=== PATIENT | female | born 1945 | race Caucasian/White ===

== ENCOUNTER 2025-04-24 14:58 | Emergency (ER) | payer MEDICARE, BC, SELFPAY ==
[2025-04-24 15:00] VITALS: BP 155/72; PULSE 69; RESP 20; TEMP 36.7; O2SAT 98; BMI 31.6
--- NOTE | 2025-04-24 15:05 | ED_ITS ---
<Statement entered by Milana Walsh DO - 04/25/25 21:57> I was consulted by the FILI, and we discussed the complexity of problems being addressed. I approve the treatment and management plan for this patient's care in the emergency department, thus performing a substantial portion of the medical decision making. Milana Walsh DO Discharge Plan Disposition Patient Disposition: Home, Self-Care Condition: Good Prescriptions Prescriptions: New cefdinir 300 mg capsule 300 mg PO BID 7 Days Qty: 14 0RF Referrals Follow up/Referrals: Rudolph Uribe MD [Primary Care Provider, Medical] - See instructions Activity Restrictions/Add. Instructions Additional Instructions/Restrictions: You were evaluated on an emergency basis. It is very important that you follow- up with your primary care provider and any specialist who we discussed within the next 2 days in order to better assess your health more comprehensively. For example, incidental findings on imaging or laboratory results that were performed today may be discovered, which do not require immediate medical care, but may impact your health in the future. If your symptoms worsen or persist, please return to the emergency department immediately for reassessment. Take all medications as prescribed. In queue for allowing me to participate in your health care, and I hope you feel better soon. Clinical Impressions Clinical Impression: Urinary tract infection Instructions Patient Instructions: DI for Urinary Tract Infection (UTI) Print Language Print Language: Colombian Discharge ED Provider: Milana Walsh General Adult HPI General Chief complaint: Urogenital-Female Stated complaint: Will discuss with Dr Chairez Seen by Provider: 04/24/25 15:05 History of Present Illness HPI narrative: 79-year-old female presents emergency department with complaints of vaginal discomfort for the past month. She states that she originally thought she had a urinary tract infection however she followed up with her primary care provider approximate 1 month ago where her urinalysis was negative. She states today she got a mirror and was looking in her vaginal area and it appeared that something was coming out of me . She reports taking a shower and trying to push what ever was coming out back in. She denies other symptoms at this time. Related Data Previous Rx's ?Medication ?Instructions ?Recorded cefdinir 300 mg capsule 300 mg PO BID 7 days #14 cap s 04/24/25 Allergies Allergy/AdvReac Type Severity Reaction Status Date / Time No Known Allergies Allergy Verified 04/24/25 15:17 PFSH PFSH Disclaimer: The information contained in this section may have been updated after the patient was seen, as this information can be updated by other users. Social History Smoking Status: Never smoker alcohol intake: never current occupational status: previously employed Travel in the last 8 weeks?: None ROS Obtained: Yes other Genitourinary Female Genitourinary: Reports prolapse symptoms Physical Exam Narrative Physical exam: General: Awake, aware, in no acute distress HEENT: Normocephalic, no evidence of trauma CV: RRR, no murmurs, rubs, or gallops Pulm: CTA bilaterally with no rhonchi, rales, wheezes ABD: Nontender, no swelling, guarding, or rebound tenderness Psych, appropriate mood and affect General General appearance: alert Respiratory Respiratory exam: Present normal lung sounds bilaterally Cardiovascular Cardiovascular exam: Present regular rate External exam: Present normal external exam and other (RN present as gold reclaimer) Neurological Exam Neurological exam: Present alert Medical Decision Making Medical Records Screening: Per USPSTF and CDC recommendations, given the prevalence of disease in our region, it is our hospital?s policy to screen for HIV and viral Hepatitis for all patients aged 18 and over and those with ongoing risk factors. Donnie Inquiry Pt receiving controlled substance: No Vital Signs: 04/24/25 15:00 Temperature 98.0 F Temperature Source Temporal Artery Scan Pulse Rate [Left] 69 Respiratory Rate 20 Blood Pressure [Right Arm] 155/72 H Blood Pressure Mean [Right Arm] 99 Blood Pressure Source [Right Arm] Automatic Cuff Blood Pressure Position [Right Arm] Sitting 02 Sat by Pulse Oximetry 98 Oxygen Delivery Method Room Air Lab Data Lab Results 04/24/25 15:15: Urine Color Yellow, Urine Appearance Cloudy, Urine pH 6.0, Ur Specific Jackson 1.010, Urine Protein Negative, Urine Glucose (UA) Negative, Urine Ketones Negative, Urine Blood 1+ A, Urine Nitrate Positive A, Urine Bilirubin Negative, Urine Urobilinogen 0.2, Ur Leukocyte Esterase 3+ A, Urine RBC 20-50, Urine WBC Tntc, Ur Squamous Epith Cells 10-20, Urine Bacteria 4+ Orders (Tests/Meds): ORDERS Category Date Time Status Urinalysis and Microscopic Stat Lab 04/24/25 15:15 Completed Urine Culture Stat Micro 04/24/25 15:15 Received Medical Decision Narrative: Initial impression of presenting illness: 79-year-old female presents the emergency department with complaints of vaginal discomfort for the past month. She states that she originally thought she had a urinary tract infection however when she followed up with her primary care provider her urinalysis was negative for UTI. Patient states today she was looking at the area with a mirror and was concerned that something was coming out of her vaginal area. Patient reports that she took shower and attempted to push back what ever was coming out. Differential diagnosis includes but is not limited to: Prolapsed uterus, prolapsed bladder, mass, abscess Patient arrives hemodynamically stable, afebrile, without respiratory distress with vital signs interpreted by myself. Initial physical exam unremarkable. Vaginal exam was completed with RN as a gold reclaimer. No anatomical abnormalities were noted. Abdomen soft nontender with normal active bowel sounds. Initial diagnostic plan: Urinalysis Results from initial plan were reviewed and interpreted by myself, pertinent positives include: Urinalysis positive for nitrates as well as 20-50 red blood cells per high-power field as well as too numerous to count white blood cells per high-power field. Also 4+ bacteria. Patient was made aware of the results and the findings, upon reevaluation patient has remained stable throughout stay, symptoms remained stable. Upon reevaluation patient is resting comfortably in bed with no signs of acute distress. Disposition: Reviewed findings today's workup with patient and informed that she does have a urinary tract infection and that we will treat with Omnicef. Advised that she follow-up with her primary care provider for further evaluation of her UTI. Also she states that she has got in touch with a assurance manager insurance and has an appointment scheduled for later this month for follow-up of possible organ prolapse. I instructed her to return to the emergency department any new or worsening symptoms. Patient is agreeable to plan of care. Patient made aware of findings and had a detailed discussion with symptomatic care and return precautions, patient voiced understanding. Critical Care Critical Care Time Critical Care Time: No
[2025-04-24 15:24] LABS: Microscopic, Urine URINE MICROSCOPIC (MICROSCOPIC)
[2025-04-24 15:29] LABS: Bilirubin,Urine Negative (Negative); Color,Urine YELLOW (Yellow); Glucose,Urine (UA) Negative (Negative); Ketones,Urine Negative (Negative); Leukocyte Esterase,Urine 3+ (Negative); PH,Urine 6.0 (5.0-8.5); Protein,Urine Negative (Negative); Specific Gravity, Urine 1.010 (1.005-1.030); Urobilinogen,Urine 0.2 EU/dl (0.2)
--- OUTSIDE RECORDS SUMMARY | 2025-04-24 16:00 | XMS_ITS | Encounter Summary ---
[facility] Address [address] [place] [address] Care Team Providers Care Pharmacy Tech Name Role Phone Chung Toth APRN Primary Care Provi fabienne Encounter Details Date Type Department Care Team (Late st Contact Info) Description 03/27/2025 Telephone [facility] [address] [place] [id number] Madhavi Sen MD [address] [place], [place] [id number] Social History Tobacco Use Types Packs/Day Years Used Date Smoking Tobacco: Never Smokeless Tobacco: Never Alcohol Use Standard Drinks/Week Comments No 0 (1 standard drink = 0.6 oz pur e alcohol) AUDIT-C Answer Date Recorded Q1: How often do you have a drink containing alcohol? Never 05/20/2023 Q2: How many drinks containi ng alcohol do you have on a typical day when you are drinking? Patient does not drink Q3: How often do you have si x or more drinks on one occasion? Never 05/20/2023 Abuse Screen Answer Date Recorded Feels Unsafe at Home or Work/School no 05/20/2023 Feels Threatened by Someone no 05/08 Does Anyone Try to Keep You From Having Contact with Others or Doing Things Outside Your Home? no 05/20/2023 Physical Signs of Abuse Present no 05/20/2023 Housing Stability Answer Date Recorded Current Living Arrangements home 05/08 Potentially Unsafe Housing Conditions Not on joe e 05/20/2023 Disabilities Answer Date Recorded Difficulty Concentrating, Remembering or Making Decisions no 05/20/2023 Difficulty Managing Errands Independently yes 05/20/2023 Education Answer Date Recorded Help with school or training? Not on file Preferred Language Namibian 05/06/2023 Comments No Sex and Gender Information Value Date Recorded Sex Assigned at Not on file Legal Sex Female 12:00 PM EDT Gender Identity Not on file Sexual Orientation Not on file documented as of this encounter Miscellaneous Notes * Telephone Encounter - Christine Melton RN - 03/27/2025 3:03 PM EDT Pt has been contacted in regards to 's labs/Echo. Meds sent to [facility] in [place]. * Telephone Encounter - Yasmine Funes RegSched Rep - 03/27/2025 2:44 PM EDT PT CALLED LVM STATING SHE WAS RETURNING YOUR CALL. documented in this encounter Plan of Treatment Upcoming Encounters Date Type Department Care Team (Late st Contact Info) Description 08/22/2025 12:30 PM EST Office Visit [facility] [address] [place] [id number] Jaqueline Nance APRN [address] [place] [id number] documented as of this encounter Visit Diagnoses Not on filedocumented in this encounter Care Teams Pharmacy Tech Relationship Specialty Start Date End Date Chung Toth APRN [address] [place] [id number] PCP - General Nurse Practitioner 03/09/23 documented as of this encounter
--- OUTSIDE RECORDS SUMMARY | 2025-04-24 16:00 | XMS_ITS | Clinical Summary ---
Author Organization [facility] Address [address] [place] [address] Care Team Providers Care Assembly Line Inspector Name Role Phone ArchiefrancoisChung APRN Primary Care Provi fabienne Allergies Active Allergy Reactions Criticality Noted Date Comments Clarithromycin GI Intolerance Low 04/28/2017 Cefaclor Rash Low 04/28/2017 Erythromycin GI Intolerance Low 09/10/2022 Naproxen GI Intolerance Low 04/28/2017 Penicillins Hives Low 04/28/2017 Sulfa Antibiotics Other (See Comments) Low 04/28/20 17 Unsure Other reaction(s): Other (See Comments) Unsure Medications lisinopril (PRINIVIL,ZESTR IL) 40 MG tablet Take 1 tablet by mouth Daily. 1 06/22/2017 Active metoprolol succinate XL (TOPROL-XL) 50 MG 24 hr tablet Take 1 tablet by mouth Daily. 1 08/11/2017 Active sertraline (ZOLOFT) 50 MG tablet Take 1 tablet by mouth Daily. 1 11/15/2017 Active famotidine (PEPCID) 20 MG tablet Take 1 tablet by mouth 2 (Two) Times a Day. 07/07/2021 Active rosuvastatin (CRESTOR) 20 MG tablet Take 1 tablet by mouth Daily. 08/31/2021 Active albuterol sulfate HFA 108 (90 Base) MCG/ACT inhaler Inhale 2 puffs Every 4 (Four) Hours As Needed. 04/26/2022 Active esomeprazole (nexIUM) 40 MG capsule Take 1 capsule by mouth Every Morning Before Breakfast. 05/13/2022 Active promethazine (PHENERGAN) 12.5 MG tablet Take 1 tablet by mouth Daily. 05/17/2022 Active clonazePAM (KlonoPIN) 0.5 MG tablet Take 1 tablet by mouth 2 (Two) Times a Day. 05/18/2022 Active ondansetron (ZOFRAN) 4 MG tablet Take 1 tablet by mouth Every 8 (Eight) Hours As Needed. 09/20/2022 Active aspirin 81 MG EC tablet Take 1 tablet by mouth Daily. 06/21/2023 Active acetaminophen (TYLENOL) 325 MG tablet Take 2 tablets by mouth Every 6 (Six) Hours As Needed for Mild Pain. 05/28/2023 Active levothyroxine (SYNTHROID, LEVOTHROID) 125 MCG tablet 02/13/2025 Active Cholecalciferol (VITAMIN D-3 PO) Take by mouth. Active Magnesium Oxide (MAGNESIUM EXTRA STRENGTH PO) Take by mouth. Active Active Problems Problem Noted Date Diagnosed Date Nonrheumatic aortic valve insufficiency 02/22/20 Assessment & Plan (02/21/2025 4:07 PM EDT): Noted that patient had murmur on assessment Echo check 02/19/2025 showing: EF 65%, -Aortic valve sclerosis, mild calcification, mild regurgitation without significant stenosis. -mild aortic valve regurgitation We discussed today a new diagnosis of mild aortic valve insufficiency and that the patient should follow her symptoms. If she has increased shortness of air, edema, dizziness weakness or syncope then she should return for further assessment sooner. Otherwise I told her that we could recheck this valve every 3 to 5 years or as needed with any increased symptoms. Heart murmur 02/14/2025 Assessment & Plan (02/14/2025 6:55 PM EDT): New finding on the assessment by her family physician and present on assessment at today's visit Cardiology note from [facility] reports her last echocardiogram in 2020 with no significant valvular disease Plan: Check an echo Follow-up after study to review the findings Coronary artery disease invo lving twenty-nine palms coronary artery of twenty-nine palms heart without angina pectoris 02/14/2025 Assessment & Plan (02/21/2025 4:01 PM EDT): Known history of nonflow-limiting coronary artery disease seen on heart cath in 2019. Last nuclear stress test 07/17/2024 at [facility] that is low risk. Symptoms are stable Plan: Continue medical management including aspirin, statin, metoprolol and lisinopril She is advised heart healthy diet She is advised low sodium diet She is advised exercise and activity She is advised if her symptoms increase or worsen then she is to return Assessment & Plan (02/14/2025 6:54 PM EDT): She has a known history of nonflow-limiting coronary artery disease seen on heart cath 07/20/2019. I have requested this heart cath to review. She was most recently seen by [facility] cardiology Her last nuclear stress test was completed 07/17/2024 at [facility] and this was a normal Paulina nuclear stress test with no Paulina induced ischemia demonstrated and normal ejection fraction. Her complaints of epigastric to low chest discomfort does seem to be related to indigestion and acid reflux as it is occurring when she misses her Pepcid. Pain does seem atypical for cardiac She also has a complaint of left shoulder pain. This pain is relieved by Tylenol or occasionally and Advil. This pain seems atypical for cardiac. Plan: She is on medical management and we plan to continue the following: Aspirin Statin Metoprolol Lisinopril Continue to follow her symptoms closely and she is advised any increased or worsening to let this office know or to present to the emergency room for further evaluation and she verbalized understanding Status post total hip replacement, right 023 Degenerative arthritis of hip 03/09/2023 Acute postoperative pain 10/06/2017 Obesity 10/05/2017 S/P total knee arthroplasty, left 10/04/2017 Hypothyroid 10/04/2017 HTN (hypertension) 10/04/2017 HLD (hyperlipidemia) 10/04/2017 Prediabetes 10/04/2017 Primary osteoarthritis of left knee 08/29/2017 Overview (08/29/2017): Added automatically from request for surgery [id number] Encounters Date Type Department Care Team Description 03/27/2025 Telephone [facility] [address] [place], [place] [address] Madhavi Sen MD 02/21/2025 8:45 AM EDT Office Visit [facility] [address] [place] [phone] Prisca Martinez APRN Nonrheumatic aortic valve insufficiency (Primary Dx); Coronary artery disease involving twenty-nine palms coronary artery of twenty-nine palms heart without angina pectoris 02/21/2025 Travel 02/19/2025 12:30 PM EDT Ancillary Procedure [facility] [place] [id number] Heart murmur 02/19/2025 Travel 02/14/2025 9:30 AM EDT Office Visit [facility] [place] [place] [address] Prisca Martinez APRN Heart murmur (Primary Dx); Coronary artery disease involving twenty-nine palms coronary artery of twenty-nine palms heart without angina pectoris 02/14/2025 Patient rounding ([facility] only) [facility] [address] [place] [phone] Prisca Martinez APRN 02/14/2025 Travel from Last 3 Months Family History Medical History Relation Name Comments Heart attack Father Hypertension Father Heart attack Mother Hypertension Mother Relation Name Status Comments Father Mother Social History Tobacco Use Types Packs/Day Years Used Date Smoking Tobacco: Never Smokeless Tobacco: Never Tobacco Cessation:Counseling Given: Not Answered Alcohol Use Standard Drinks/Week Comments No 0 [...] or training? Not on file Preferred Language Cameroonian 05/06/2023 Comments No Sex and Gender Information Value Date Recorded Sex Assigned at Not on file Legal Sex Female 12:00 PM EDT Gender Identity Not on file Sexual Orientation Not on file Last Filed Vital Signs Vital Sign Reading Time Taken Comments Blood Pressure 118/64 02/21/2025 8:29 AM EDT Pulse 68 02/21/2025 8:29 AM EDT Temperature 36.3 C (97.3 F) 06/13/2023 1:34 PM EST Respiratory Rate 18 05/21/2023 12:00 PM EDT Oxygen Saturation 98% 02/21/2025 8:29 AM EDT Inhaled Oxygen Concentration - - Weight 74.5 kg (164 lb 4.8 oz) 02/21/2025 8:29 A M EDT Height 149.9 cm (4' 11 ) 02/21/2025 8:29 AM EDT Body Mass Index 33.18 02/21/2025 8:29 AM EDT Plan of Treatment Upcoming Encounters Date Type Department Care Team (Late st Contact Info) Description 08/22/2025 12:30 PM EST Office Visit [facility] [address] [place] [address] Jaqueline Nance, FIRST AID DIRECTOR [address] [place] [address] [place] [address] Health Maintenance Due Date Last Done Comments LIPID PANEL 1945 COLOGUARD 1989 COLON CANCER SCREENING 5 YEA R SIGMOIDOSCOPY [address] CT COLONOGRAPHY 1989 FECAL OCCULT BLOOD TEST 1989 FIT Testing (1 year) 1989 RSV Vaccine - Adults (1 - 1- dose 75+ series) 12/17/2019 COLONOSCOPY 01/14/2020 01/13/2010 COLORECTAL CANCER SCREENING 01/14/2020 DXA SCAN 11/17/2023 11/16/2021 COVID-19 Vaccine (4 - 2024-2 6 season) 2025 08/31/2021, 12/19/2020, 11/19/2020 INFLUENZA VACCINE 05/08/2025 04/29/2020, 04/02/2019 ANNUAL WELLNESS VISIT 09/19/2025 09/19/2024, 023 TDAP/TD VACCINES (2 - Td or Tdap) 03/01/2033 023, 05/20/2011 ZOSTER VACCINE Completed 10/08/2019, 07/03/2019 Pneumococcal Vaccine 50+ Completed 022, 07/15/2017, 10/08/2015, Additional history exists MAMMOGRAM Discontinued 04/25/2023, 04/08, 11/16/2021, Additional history exists Medical Devices Implanted Type Area [employer] Device Identifier Shelf Expiration Date Model / Serial / Lot Cmt Bone Simplex/P Full Dose 10/Pk - [id number] Implanted:Qty: 1 on 10/04/2017 by Sammy Villanueva MD at [facility] Implant RACHID KARUNA 03/07/2020 [id number] / / [id number] Comp Fem Attune Cmt Ps Sz4 Lt - [id number] Implanted:Qty: 1 on 10/04/2017 by Sammy Villanueva MD at [facility] Implant Left: Knee DEPUY 05/07/2027 [id number] / / [id number] Comp Pat Attune Cmt Medl Marija 35mm - [id number] Implanted:Qty: 1 on 10/04/2017 by Sammy Villanueva MD at [facility] Implant Left: Knee DEPUY 08/07/2022 [id number] / / [id number] Base Tib Attune Cmt Rp Sz4 - [id number] Implanted:Qty: 1 on 10/04/2017 by Sammy Villanueva MD at [facility] Implant Left: Knee DEPUY 04/07/2027 [id number] / / [id number] Insrt Tib Attune Ps Rp Sz4 6mm - [id number] Implanted:Qty: 1 on 10/04/2017 by Sammy Villanueva MD at [facility] Implant Knee DEPUY 06/07/2022 [id number] / / [id number] Totl Kn Attune Depuy [id number] - [id number] Implanted:Qty: 1 on 10/04/2017 by Sammy Villanueva MD at [facility] Implant Left: Knee DEPUY CAPKNEETOTA LDEP5 / / Liner Acet R3 Xlpe 0d 29s21gk - [id number] Implanted:Qty: 1 on 05/20/2023 by Sammy Villanueva MD at [facility] Implant Right: Hip BAUTISTA AND NEPHEW [id number] 11/15/2032 [id number] / / [id number] Scrw Sph Hd Reflection 6.5x25mm - [id number] Implanted:Qty: 1 on 05/20/2023 by Sammy Villanueva MD at [facility] Implant Right: Hip [employer]PHEW [id number] 12/10/2032 [id number] / / [id number] Stem Fem/Hip Polarstem W/Colr Std Sz2 - [id number] Implanted:Qty: 1 on 05/20/2023 by Sammy Villanueva MD at [facility] Implant Right: Hip [employer]W [id number] 09/09/2029 [id number] / / [id number] Hd Fem/Hip Bioloxdelta R3 /14 Sm 32mm Pls0 - [id number] Implanted:Qty: 1 on 05/20/2023 by Sammy Villanueva MD at [facility] Implant Right: Hip [employer]PHEW [id number] 2030 [id number] / / [id number] Totl Hip Turner Bautista Nephew - [id number] Implanted:Qty: 1 on 05/20/2023 by Sammy Villanueva MD at [facility] Implant Right: Hip [employer]A [employer] NEPHEW CAPHIPTOTAL SN2 / / Dev Contrl Tiss Stratafix Spiral Mncryl Ud 3/0 Pls 60cm - [id number] Implanted:Qty: 1 on 05/20/2023 by Sammy Villanueva MD at [facility] Implant Right: Hip [employer] DIV OF J AND J [id number] 02/04/2025 [id number] / / [id number] Dev Contrl Tiss Stratafix Symm Pds Plus Anna Ct-1 45cm - [id number] Implanted:Qty: 1 on 05/20/2023 by Sammy Villanueva MD at [facility] Implant Right: Hip [employer] DIV OF Giancarlo AND Giancarlo [id number] 11/05/2024 [id number] / / [id number] Shll Acet R3 3h Std 48mm - [id number] Implanted:Qty: 1 on 05/20/2023 by Sammy Villanueva MD at [facility] Implant Right: Hip [employer]PHEW [id number] 11/22/2032 [id number] / / [id number] Procedures Procedure Name Priority Date/Time Associated Diagnosis Comments ECHO COMPLETE W/ DOPPLER AND COLOR FLOW Routine 02/19/2025 1:19 PM EDT Heart murmur ECG 12-LEAD Routine 02/14/2025 7:01 PM EDT Coronary artery disease involving twenty-nine palms coronary artery of twenty-nine palms heart without angina pectoris SCANNED - LABS 02/13/2025 from Last 3 Months Results * ECHO COMPLETE W/ DOPPLER AND COLOR FLOW (02/19/2025 1:19 PM EDT) [facility] Signature EF(MOD-bp) 65.1 % LVIDd 4.0 cm LVIDs 2.6 cm IVSd 1.07 cm LVPWd 0.89 cm FS 33.2 % IVS/LVPW 1.20 cm ESV(cubed) 18.4 ml LV Sys Vol (BSA corrected) 18.2 cm2 EDV(cubed) 61.6 ml LV Lyn Vol (BSA corrected) 53.1 cm2 LV mass(C)d 121.0 grams LVOT area 3.1 cm2 LVOT diam 2.00 cm EDV(MOD-sp2) 83.9 ml EDV(MOD-sp4) 89.8 ml ESV(MOD-sp2) 30.2 ml ESV(MOD-sp4) 30.7 ml SV(MOD-sp2) 53.7 ml SV(MOD-sp4) 59.1 ml SVi(MOD-SP2) 31.8 ml/m2 SVi(MOD-SP4) 35.0 ml/m2 SVi (LVOT) 70.4 ml/m2 EF(MOD-sp2) 64.0 % EF(MOD-sp4) 65.8 % MV E max steve 86.0 cm/sec MV A max steve 105.0 cm/sec MV dec time 0.26 sec MV E/A 0.82 IVRT 103.0 ms Med Peak E' Steve 6.5 cm/sec Lat Peak E' Steve 7.5 cm/sec TR max steve 264.3 cm/sec Avg E/e' ratio 12.29 SV(LVOT) 119.1 ml RVIDd 2.47 cm RV Base 3.2 cm RV Mid 3.0 cm RV Length 5.9 cm TAPSE (>1.6) 2.01 cm RV S' 15.4 cm/sec LA dimension (2D) 2.9 cm LV V1 max 162.0 cm/sec LV V1 max PG 10.5 mmHg LV V1 mean PG 5.0 mmHg LV V1 VTI 37.9 cm Ao pk steve 186.0 cm/sec Ao max PG 13.8 mmHg Ao mean PG 7.0 mmHg Ao V2 VTI 37.7 cm SLIM(I,D) 3.2 cm2 Dimensionless Index 1.01 (DI) AI P1/2t 702.2 msec MV max PG 4.8 mmHg MV mean PG 2.00 mmHg MV V2 VTI 36.0 cm MV P1/2t 80.0 msec MVA(P1/2t) 2.7 cm2 MVA(VTI) 3.3 cm2 MV dec slope 307.0 cm/sec2 TR max PG 28.0 mmHg RVSP(TR) 31.0 mmHg RAP systole 3.0 mmHg PA V2 max 128.0 cm/sec Ao root diam 2.6 cm Sinus 2.6 cm Anatomical Region Laterality Modality Ultrasound Narrative 02/19/2025 6:10 PM EDT Left ventricular systolic function is normal. Calculated left ventricular EF = 65.1% Left ventricular diastolic function was indeterminate. Estimated right ventricular systolic pressure from tricuspid regurgitation is normal (<35 mmHg). Mild aortic valve regurgitation is present. Left Ventricle Left ventricular systolic function is normal. Calculated left ventricular EF = 65.1% Normal left ventricular cavity size noted. Left ventricular wall thickness is consistent with hypertrophy. Sigmoid-shaped ventricular septum is present. All left ventricular wall segments contract normally. Left ventricular diastolic function was indeterminate. Right Ventricle Normal right ventricular cavity size, wall thickness, systolic function and septal motion noted. Left Atrium Left atrial volume is borderline increased. Right Atrium Normal right atrial cavity size noted. Right atrial volume is 23 ml. Mitral Valve Mild mitral annular calcification is present. There is mild calcification of the mitral valve anterior and posterior leaflet(s). Mild mitral valve regurgitation is present. No significant mitral valve stenosis is present. Tricuspid Valve The tricuspid valve is structurally normal with no significant stenosis present. Mild tricuspid valve regurgitation is present. Estimated right ventricular systolic pressure from tricuspid regurgitation is normal (<35 mmHg). Aortic Valve The aortic valve is abnormal in structure. The aortic valve exhibits sclerosis. There is mild calcification of the aortic valve. Mild aortic valve regurgitation is present. No hemodynamically significant aortic valve stenosis is present. Pulmonic Valve The pulmonic valve is not well visualized. The pulmonic valve is grossly normal in structure. There is trace pulmonic valve regurgitation present. There is no pulmonic valve stenosis present. Pericardium There is a trivial pericardial effusion. The effusion is fluid filled. There is no evidence of cardiac tamponade. Greater Vessels No dilation of the aortic root is present. No dilation of the sinuses of Valsalva is present. No dilation of the proximal aorta is present. The ascending aorta not well visualized. The aortic arch not well visualized. The descending aorta not well visualized. The inferior vena cava is normally sized. Normal IVC inspiratory collapse of greater than 50% noted. The pulmonary artery not well visualized. Study Quality The study is technically difficult for diagnosis. Wall Scoring Score Index: 1.00 The left ventricular wall motion is normal. us Prisca Martinez APRN CV ECHO ORDERABLES Nette richards Result * ECG 12-LEAD (02/14/2025 7:01 PM EDT) Narrative ECG - 02/14/2025 7:01 PM EDT Prisca Martinez APRN 02/14/2025 7:02 PM ECG 12 Lead Date/Time: 02/14/2025 7:01 PM Performed by: Prisca Martinez APRN Authorized by: Prisca Martinez APRN Comparison: compared with previous ECG from 05/06/2023 Similar to previous ECG Comparison to previous ECG: Sinus rhythm heart rate 62 Rhythm: sinus rhythm Rate: normal BPM: 63 Conduction: conduction normal ST Segments: ST segments normal T Waves: T waves normal Clinical impression: non-specific ECG Comments: Possible inferior myocardial infarction, probably old Procedure Note Prisca Martinez APRN - 02/14/2025 9:30 AM EDT Images from the original note were not included. [facility] Provider Note Date: 02/14/2025 Name: Tracy Romano : 1945 PCP: Chung Toth APRN Chief Complaint Patient presents with [facility] NECK SIZE: 13in Subjective History of Present Illness Tracy Romano is a 79 y.o. female who presents today for new patientreferral from Dr. Uribe for new murmur on assessment and intermittentchest pains. She reports that she is was at her family physician's officeyesterday and was told that she had a murmur. She does not believe shehas ever been told this in the past. She reports that she has seen [facility] cardiology in the past. Shereports that her last visit was in 2023 and she had a stress test inDecember 2023. She wishes to move her cardiology care to this office aswe are closer to home for her. Patient reports that she has been told that she has a hiatal hernial andshe feels mid epigastric discomfort and this radiates up into her lowerchest. She describes this as acid reflux and indigestion. She reportsthis mostly happens when she misses her Pepcid dose from time to time.She reports she is supposed to take the Pepcid twice a day but sometimesshe does miss 1 of those doses. This is when she feels the epigastricdiscomfort. Patient also reports left shoulder pain. She reports today that the chestpain does not radiate from the epigastric to the left shoulder. Shereports these as 2 separate complaints. She reports that the shoulderpain responds to Tylenol and at times it requires an Advil but the painsubsides after pain medication. She has good range of motion in theshoulder. She does not recall a specific injury to the left shoulder. She reports that she will occasionally feel a few fast beats of her heart.This is only happened a few times when she was laying down and restingjust before bedtime. Cardiac history and testin. Nonobstructive CAD [facility] 07/2019 - Nuclear stress test 07/26/2024 at [facility] - Normal Paulina nuclear stress test - No Paulina induced ischemia demonstrated - Normal ejection fraction 2. Murmur 02/13/2025 Last echo 2020: - EF 60% - No Significant valve disease 3. Hypertension 4. Hyperlipidemia Reports Denies Chest Pain [x] [] Shortness of Air [] [x] Palpitations [x] [] Edema [] [x] Dizziness [] [x] Syncope [] [x] Allergies Allergen Reactions Biaxin [Clarithromycin] GI Intolerance Ceclor [Cefaclor] Rash Erythromycin GI Intolerance Naproxen GI Intolerance Penicillins Hives Sulfa Antibiotics Other (See Comments) Unsure Other reaction(s): Other (See Comments) Unsure Current Outpatient Medications: acetaminophen (TYLENOL) 325 MG tablet, Take 2 tablets by mouth Every 6(Six) Hours As Needed for Mild Pain., Disp: , Rfl: albuterol sulfate HFA 108 (90 Base) MCG/ACT inhaler, Inhale 2 puffsEvery 4 (Four) Hours As Needed., Disp: , Rfl: aspirin 81 MG EC tablet, Take 1 tablet by mouth Daily., Disp: , Rfl: clonazePAM (KlonoPIN) 0.5 MG tablet, Take 1 tablet by mouth 2 (Two)Times a Day., Disp: , Rfl: esomeprazole (nexIUM) 40 MG capsule, Take 1 capsule by mouth EveryMorning Before Breakfast., Disp: , Rfl: famotidine (PEPCID) 20 MG tablet, Take 1 tablet by mouth 2 (Two) Times aDay., Disp: , Rfl: levothyroxine (SYNTHROID, LEVOTHROID) 125 MCG tablet, , Disp: , Rfl: lisinopril (PRINIVIL,ZESTRIL) 40 MG tablet, Take 1 tablet by mouthDaily., Disp: , Rfl: 1 metoprolol succinate XL (TOPROL-XL) 50 MG 24 hr tablet, Take 1 tablet bymouth Daily., Disp: , Rfl: 1 ondansetron (ZOFRAN) 4 MG tablet, Take 1 tablet by mouth Every 8 (Eight)Hours As Needed., Disp: , Rfl: promethazine (PHENERGAN) 12.5 MG tablet, Take 1 tablet by mouth Daily.,Disp: , Rfl: rosuvastatin (CRESTOR) 20 MG tablet, Take 1 tablet by mouth Daily.,Disp: , Rfl: sertraline (ZOLOFT) 50 MG tablet, Take 1 tablet by mouth Daily., Disp: ,Rfl: 1 Past Medical History: Diagnosis Date Arthritis Cancer basal cell left leg removed from Fecal urgency AT 4 AM THEN AGAIN AT 8 GERD (gastroesophageal reflux disease) Hard to intubate HAD BRUISED THROAT FROM LAST INTUBATION WITH TUBAL Hiatal hernia History of kidney stones Hives when stressed Hypertension Hypothyroid Low back pain Neuropathy, lumbosacral (radicular) PONV (postoperative nausea and vomiting) WILL WANTS MEDS TO HELP Scoliosis Spinal stenosis, lumbar Spondylolisthesis, lumbar region Wears glasses Past Surgical History: Procedure Laterality Date CATARACT EXTRACTION BILAT WITH LENS CHOLECYSTECTOMY COLONOSCOPY ENDOSCOPY KIDNEY STONE SURGERY PARATHYROIDECTOMY SKIN CANCER EXCISION left leg basal removed TONSILLECTOMY TOTAL HIP ARTHROPLASTY Right 05/20/2023 Procedure: MODIFIED ANTERIOR TOTAL HIP ARTHROPLASTY - RIGHT; Surgeon:Sammy Villanueva MD; Location: [facility]; Service: Orthopedics;Laterality: Right; TOTAL KNEE ARTHROPLASTY Left 10/04/2017 Procedure: TOTAL KNEE ARTHROPLASTY LEFT; Surgeon: Sammy Villanueva MD;Location: [facility]; Service: TUBAL ABDOMINAL LIGATION WISDOM TOOTH EXTRACTION All 4 Family History Problem Relation Age of Onset Hypertension Mother Heart attack Mother Hypertension Father Heart attack Father Social History Socioeconomic History Marital status: Tobacco Use Smoking status: Never Smokeless tobacco: Never Vaping Use Vaping status: Never Used Substance and Sexual Activity Alcohol use: No Drug use: No Sexual activity: Defer Objective Vital Signs: BP 126/70 (BP Location: Left arm, Patient Position: Sitting, Cuff Size:Adult) Pulse 63 Ht 149.9 cm (59 ) Wt 73.9 kg (163 lb) BMI32.92 kg/m Estimated body mass index is 32.92 kg/m as calculated from thefollowing: Height as of this encounter: 149.9 cm (59 ). Weight as of this encounter: 73.9 kg (163 lb). Physical Exam Constitutional: Appearance: Normal appearance. She is well-developed. HENT: Head: Normocephalic and atraumatic. Nose: Nose normal. Mouth/Throat: Mouth: Mucous membranes are moist. Eyes: General: No scleral icterus. Pupils: Pupils are equal, round, and reactive to light. Neck: Vascular: No carotid bruit. Cardiovascular: Rate and Rhythm: Normal rate and regular rhythm. Pulses: Normal pulses. Radial pulses are 2+ on the right side and 2+ on the left side. Dorsalis pedis pulses are 2+ on the right side and 2+ on the leftside. Posterior tibial pulses are 2+ on the right side and 2+ on the leftside. Heart sounds: Murmur heard. Pulmonary: Effort: Pulmonary effort is normal. Breath sounds: Normal breath sounds. No wheezing or rhonchi. Abdominal: General: Bowel sounds are normal. Musculoskeletal: Right lower leg: No edema. Left lower leg: No edema. Skin: General: Skin is warm and dry. Capillary Refill: Capillary refill takes less than 2 seconds. Coloration: Skin is not cyanotic. Nails: There is no clubbing. Neurological: Mental Status: She is alert and oriented to person, place, and time. Motor: No weakness. Gait: Gait normal. Psychiatric: Mood and Affect: Mood normal. Behavior: Behavior normal. Behavior is cooperative. Thought Content: Thought content normal. Cognition and Memory: Memory normal. Cardiology studies reviewed: Nuclear stress test 07/26/2024 and officenote from [place] [facility] 07/18/2024, Labs reviewed: 02/13/2025 CMP,lipids, TSH, free T4, hemoglobin A1c, CBC, [facility] 02/13/2025 and I have requested LHC from 2019 but thisstudy is not available at the time of this dictation. ECG 12 Lead Date/Time: 02/14/2025 7:01 PM Performed by: Prisca Martinez APRN Authorized by: Prisca Martinez APRN Comparison: compared withprevious ECG from 05/06/2023 Similar to previous ECG Comparison to previous ECG: Sinus rhythm heart rate 62 Rhythm: sinus rhythm Rate: normal BPM: 63 Conduction: conduction normal ST Segments: ST segments normal T Waves: T waves normal Clinical impression: non-specific ECG Comments: Possible inferior myocardial infarction, probably old Assessment and Plan Diagnoses and all orders for this visit: 1. Heart murmur (Primary) Assessment & Plan: New finding on the assessment by her family physician and present onassessment at today's visit Cardiology note from [place] reports her last echocardiogram in 2020with no significant valvular disease Plan: Check an echo Follow-up after study to review the findings Orders: - Adult Transthoracic Echo Complete W/ Cont if Necessary Per Protocol;Future 2. Coronary artery disease involving twenty-nine palms coronary artery of nativeheart without angina pectoris Assessment & Plan: She has a known history of nonflow-limiting coronary artery disease seenon heart cath 07/20/2019. I have requested this heart cath to review. She was most recently seen by [place]'s of cardiology Her last nuclear stress test was completed 07/17/2024 at [facility] and this was a normal Paulina nuclear stress test with no Lexiinduced ischemia demonstrated and normal ejection fraction. Her complaints of epigastric to low chest discomfort does seem to berelated to indigestion and acid reflux as it is occurring when she missesher Pepcid. Pain does seem atypical for cardiac She also has a complaint of left shoulder pain. This pain is relieved byTylenol or occasionally and Advil. This pain seems atypical forcardiac. Plan: She is on medical management and we plan to continue the following: Aspirin Statin Metoprolol Lisinopril Continue to follow her symptoms closely and she is advised any increasedor worsening to let this office know or to present to the emergency roomfor further evaluation and she verbalized understanding Orders: - ECG 12 Lead Recommendations: ER if symptoms increase, Report if any new/changingsymptoms immediately, and Limitations of stress testing for definitivediagnosis reviewed Follow Up Return in about 2 weeks (around 02/28/2025) for ECHO follow up. Patient was given instructions and counseling regarding her condition orfor health maintenance advice. Please see specific information pulled intothe AVS if appropriate. us Prisca Martinez FIRST AID DIRECTOR ECG ORDERABLES Final R esult BH ECG * LABS SCANNED (02/13/2025) us Prisca Kothari Juan FIRST AID DIRECTOR LAB BLOOD ORDERABLES Fi nal Result from Last 3 Months Insurance MEDICARE A & B [facility] Advance Directives * CPR (Attempt to Resuscitate) (Latest Code Status on File) Date Activated Date Inactivated Comments 05/20/2023 3:55 PM 05/21/2023 5:02 PM Question Answer Comments Code Status (Patient has no pulse and is not breathing): CPR (Attempt to Resuscitate) Medical Interventions (Patie nt has pulse or is breathing): Full Support * Full Code Date Activated Date Inactivated Comments 10/04/2017 2:08 PM 10/06/2017 5:10 PM Question Answer Comments Level Of Support Discussed With: Patient Care Teams Assembly Line Inspector Relationship Specialty Start Date End Date Chung Toth APRN [address] [place] [id number] PCP - General Nurse Practitioner 03/09/23
[2025-04-24 16:24] LABS: RBC,Urine 20-50 #/hpf (0-3); WBC,Urine TNTC #/hpf (0-3)
[2025-04-24 16:25] LABS: Bacteria,Urine 4+ /lpf
[2025-04-24 16:40] VITALS: BP 135/74; PULSE 62; RESP 16; TEMP 36.7; O2SAT 96
--- NOTE | 2025-04-26 09:40 | PC.NURSE ---
Urine culture results reviewed by Dr. Flood. No new orders received at this time.
== END 2025-04-24 16:49 | disposition home or self-care (01) ==
PROVIDERS: Emergency Provider Student in an Organized Health Care Education/Training Program; PCP Emergency Medicine
DX: N39.0 Urinary tract infection, site not specified (principal)
CPT/HCPCS: 81001; 87086; 87088; 87186; 99283

== ENCOUNTER 2025-06-17 12:45 | Day surgery (SDC) | payer MEDICARE, BC, SELFPAY ==
[2025-06-12 08:43] VITALS: BMI 31.6
--- NOTE | 2025-06-14 15:53 | EXP.HP ---
History of Present Illness *Admission Date: 06/17/25 *History of present illness: Mrs. Romano is an 79-year-old female who is here for diagnostic EGD. She does have a history of GERD and is on Nexium and famotidine. The patient has had dysphagia for more than 2 years but over the last 18 months she has had worsening symptoms with food getting stuck or hung in the mid esophagus with some severe pain with swallowing/odynophagia. She has had 2 change diet to softer foods and soups. She has lost 40 pounds unintentionally. She reports no heartburn or reflux while on Nexium and famotidine. The examination is deemed medically necessary for diagnostic EGD. The patient has been seen, interviewed and examined prior to the procedure by both myself and the anesthesia provider. [facility] Disclaimer: The information contained in this section may have been updated after the patient was seen, as this information can be updated by other users. Medical History Irregular heartbeat History of gastroesophageal reflux (GERD) Hemorrhoid Hypothyroid Hypertension Hyperlipidemia Skin cancer Pelvic organ prolapse quantification stage 2 cystocele Urinary tract infection Surgical History History of cholecystectomy History of parathyroid surgery History of knee replacement History of right hip replacement Family History Other Cancer Heart disease Social History (Updated 06/17/25 @ 13:40 by Bharat Moreno CRNA) Smoking Status: Never smoker alcohol intake: never substance use type: denies use current occupational status: retired Travel in the last 8 weeks?: Inside the [place] Have you lived/traveled outside US in past 30 days?: No Contact w/someone who lives/traveled outside US past 30 days?: No Exposure to someone with infectious disease in past 14 days?: No Do you have a fever (greater than 100.4 F or 38 C)?: No Have you tested positive for COVID-19?: No Exposed to someone with COVID-19 in past 14 days?: No Do you have a sore throat?: No Do you have a cough?: No Do you have any weakness?: No Are you experiencing any nausea/vomitting?: No Do you have any diarrhea?: No Are you experiencing any unusual bleeding?: No Do you have any muscle aches/pain?: No Do you have any abdominal pain?: No Are you experiencing loss of taste or smell?: No Other Medical History Have you received the Pneumonia Vaccine: Yes Review of Systems Review of Systems Review of systems (narrative): Negative *Cardiovascular Comments: Negative *Gastrointestinal Comments: Negative *Genitourinary Comments: Negative *Musculoskeletal Comments: Negative *Neurologic Comments: Negative Meds Home Medications and Allergies Home Medications ?Medication ?Instructions ?Recorded ?Confirmed ?Type cholecalciferol (vitamin D3) 125 125 mcg PO DAILY 05/06/25 06/17/25 History mcg (5,000 unit) capsule clonazepam 0.5 mg tablet (Klonopin) 0.5 mg PO DAILY 05/06/25 06/17/25 History estradiol 0.01% (0.1 mg/gram) 0.5 g vaginal DAILY #42.5 grams 05/06/25 06/17/25 Rx vaginal cream famotidine 20 mg tablet (Pepcid) 20 mg PO DAILY 05/06/25 06/17/25 History lisinopril 40 mg tablet 40 mg PO DAILY 05/06/25 06/17/25 History magnesium citrate 100 mg capsule 200 mg PO DAILY 05/06/25 06/17/25 History metoprolol succinate 50 mg 50 mg PO DAILY 05/06/25 06/17/25 History tablet,extended release 24 hr rosuvastatin 20 mg tablet 20 mg PO DAILY 05/06/25 06/17/25 History sertraline 50 mg tablet 50 mg PO DAILY 05/06/25 06/17/25 History levothyroxine 112 mcg tablet 112 mcg PO DAILY 06/06/25 06/17/25 History omeprazole magnesium 20 mg 20 mg PO BID 06/06/25 06/17/25 History capsule,delayed release (Acid Shake Loader (omeprazole)) aspirin 81 mg capsule 81 mg PO DAILY 06/12/25 06/17/25 History New Prescriptions to Start Prescriptions: Allergies Allergy/AdvReac Type Severity Reaction Status Date / Time Penicillins Allergy Mild Rash Verified 06/17/25 13:24 sulfa drugs Allergy Mild Rash Uncoded 06/06/25 14:29 Exam Data for Last 24 hours I & O for Last 24 hours: Intake & Output 06/11/25 06/12/25 06/13/25 06/14/25 23:59 23:59 23:59 23:59 Weight 162 lb *Routine HEENT Exam Head: Present normocephalic Eye: Present EOMI and PERRL ENT: Present mucous membranes moist *Routine Neck Exam Neck: Present supple *Routine Respiratory Exam Respiratory: Present CTA bilaterally *Routine Cardiovascular Exam Cardiovascular: Present RRR *Routine Abdominal Exam Abdominal: Present soft and normoactive bowel sounds; Absent tenderness *Routine Rectal Exam Rectal:: deferred *Routine Genitalia Exam Genitalia:: deferred *Routine Extremities Exam Extremities: Absent cyanosis, clubbing or edema *Routine Skin Exam Skin: Present warm; Absent rash *Routine Neurological Exam Neurological: Present alert and oriented X3 Assessment and Plan *Assessment and plan (1) Painful swallowing: Status: Acute Category: Medical Code(s): R13.10 - Dysphagia, unspecified (2) Dysphagia: Status: Acute Category: Medical Code(s): R13.10 - Dysphagia, unspecified (3) Weight loss: Status: Acute Category: Medical Code(s): R63.4 - Abnormal weight loss (4) Regurgitation of food: Status: Acute Category: Medical Code(s): R11.10 - Vomiting, unspecified (5) History of gastroesophageal reflux (GERD): Status: Acute Category: Medical Code(s): Z87.19 - Personal history of other diseases of the digestive system Plan A/P: 1. Dysphagia/odynophagia (painful swallowing) with weight loss and regurgitation of food is the preprocedural diagnosis. The patient does have a history of GERD well-controlled on Nexium and famotidine. The patient will be anesthetized/sedated using MAC sedation. The patient has been seen and examined. Cardiac and lung assessment prior to the examination is stable. Proceed with planned diagnostic EGD.
--- NOTE | 2025-06-17 07:07 | HMH.PROCNOTE ---
[facility] Procedure Note Date: 06/17/25 Time: 14:36 Procedure Note:: Upper Endoscopy Procedure Report: Esophagogastroduodenoscopy with cold biopsies and TTS balloon dilation Endoscopost: Allan Agustin II, MD Referring Physician: Rudolph Uribe MD Date of Procedure: June 17, 2025 Equipment: Olympus GIF-1100 standard upper endoscope Sedation: MAC sedation Indications: Mrs. Romano is an 79-year-old female who is here for diagnostic EGD. She does have a history of GERD and is on Nexium and famotidine. The patient has had dysphagia for more than 2 years but over the last 18 months she has had worsening symptoms with food getting stuck or hung in the mid esophagus with some severe pain with swallowing/odynophagia. She has had to change diet to softer foods and soups. The patient does report a lot of belching and mid epigastric and retrosternal discomfort. The patient reports early satiety and abdominal tightness/bloating. She reports regular bowel function. She has lost 40 pounds unintentionally. She reports no heartburn or reflux while on Nexium and famotidine. The examination is deemed medically necessary for diagnostic EGD. Procedure: Prior to the procedure, a history and physical exam was performed, and patient's medications and allergies were reviewed. The risks, benefits and alternatives of the sedation and procedure were discussed with the patient. All questions were answered and informed consent was obtained. The patient was brought to the procedure room. Patient identification and proposed procedure were verified by the physician and the nurse. The patient was placed in a left lateral decubitus position and the scope was passed under direct vision. Throughout the procedure, the patient's blood pressure, pulse, and oxygen saturations were monitored continuously. The upper GI endoscopy was accomplished without difficulty. The patient tolerated the procedure well. Findings: The scope was passed directly into the upper esophagus and advanced to the third portion of the duodenum. The post bulbar duodenum, ampulla and duodenal bulb were normal with normal mucosa and conniventes. 2 cold biopsies were taken from the second portion of the duodenum for the disaccharidase assay. The scope was withdrawn through a normal duodenal bulb and pylorus into the stomach. There was moderate linear reactive gastropathy of the antrum. There were fundic gland polyps in the fundus. Most of the fundus of the stomach was above the hiatus leaving a large 7 to 8 cm hiatal hernia which was primarily paraesophageal hernia. There were no Ez's erosions. Cold biopsies were taken from the antrum. The scope was then withdrawn into the esophagus. There was no evidence of reflux esophagitis or Newell's. There were tertiary contractions and evidence of mild to moderate esophageal dysmotility. There were no rings, strictures, corrugation, webs or furrowing. The entire esophagus was dilated to 60 Amharic/20 mm with a TTS hydrostatic balloon. There was mild resistance at the cricopharyngeus. The remainder of the esophageal mucosa was normal. Impression: 1. 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 Moderate linear reactive gastropathy of antrum Plan: I will discuss the findings with the patient and family. Based upon the size of her hiatal hernia, we will discuss merits of robotic minimally invasive hiatal hernia repair. I will follow-up the biopsies and disaccharidase assay.
[2025-06-17 13:25] VITALS: BP 141/75; PULSE 58; RESP 16; TEMP 36.4; O2SAT 95
[2025-06-17] MEDS: LACTATED RINGERS 1000ML 1,000 ML 50 ML IV (13:32)
--- NOTE | 2025-06-17 13:40 | EXP.ANES.CKL ---
[facility] Disclaimer: The information contained in this section may have been updated after the patient was seen, as this information can be updated by other users. Medical History Irregular heartbeat History of gastroesophageal reflux (GERD) Hemorrhoid Hypothyroid Hypertension Hyperlipidemia Skin cancer Pelvic organ prolapse quantification stage 2 cystocele Urinary tract infection Surgical History History of cholecystectomy History of parathyroid surgery History of knee replacement History of right hip replacement Family History Other Cancer Heart disease Social History Smoking Status: Never smoker alcohol intake: never substance use type: denies use current occupational status: retired Travel in the last 8 weeks?: Inside the [place] [facility] Anesthesia Checklist Patient Identification Patient Identification: Arm Band Structural Data Admitted From: Home Planned Operative Procedure/s: EGD Consent for Planned Operative Procedure(s) Verified: Yes Verified Documents: Surgical Consent and History and Physical NPO Status Verified Time NPO: 00:00 Additional verifications Anesthesia Reactions: No Airway Assessment Mallampati Score:: Class II C-Spine Mobility Assessed: Yes TMJ Mobility Assessed: Yes Dentition: Good Dentition Neurological Assessment Level of Consciousness: Awake, Alert and Appropriate Anesthesia Plan Anesthesia Risk discussed: Yes Anesthesia Plan: Verified ASA Class: II Anesthesia Type: MAC
[2025-06-17 14:35] VITALS: BP 103/69; PULSE 65; RESP 18; TEMP 36.2; O2SAT 91
[2025-06-17 14:50] VITALS: BP 108/66; PULSE 57; RESP 16; O2SAT 93
[2025-06-17 15:00] VITALS: BP 112/70; PULSE 59; RESP 18; O2SAT 97
== END 2025-06-17 15:02 | disposition home or self-care (01) ==
PROVIDERS: PCP Emergency Medicine; Visit Provider Internal Medicine Gastroenterology
PROC: 0DJ08ZZ Inspection of Upper Intestinal Tract, Via Natural or Artificial Opening Endoscopic (ICD-10-PCS; CPT 43239; principal; 2025-06-17 14:30)
DX: K22.4 Dyskinesia of esophagus (principal); K44.9 Diaphragmatic hernia without obstruction or gangrene; K31.89 Other diseases of stomach and duodenum; E03.9 Hypothyroidism, unspecified; E78.5 Hyperlipidemia, unspecified; K21.9 Gastro-esophageal reflux disease without esophagitis; I10 Essential (primary) hypertension; Z87.19 Personal history of other diseases of the digestive system; Z79.82 Long term (current) use of aspirin; Z90.49 Acquired absence of other specified parts of digestive tract; Z88.0 Allergy status to penicillin; Z88.2 Allergy status to sulfonamides; R13.10 Dysphagia, unspecified
CPT/HCPCS: 43239; 43249; 82657; C1726; J2003; J2704; J7120